=== PATIENT | female | born 1955 | race Caucasian/White ===

== ENCOUNTER 2019-06-10 13:30 | Outpatient (CLI) | payer OTHER, SELFPAY ==
--- NOTE | ~2019-06-10 | DEXA_ITS ---
Bone Density Report Name: Tabatha Douglass Age: 64 Sex: Female Ethnicity: White Date of : 1955 Indication: postmenopausal; height loss; Referring Provider: Ese, Cherelle Study: Bone densitometry was performed. Exam Date: June 10, 2019 Accession number: [id number] Bone Density: Region BMD T-score Z-score Classification AP Spine (L1, L2) 0.898 -0.7 0.9 Normal Femoral Neck (Left) 0.771 -0.7 0.8 Normal Total Hip (Left) 1.011 0.6 1.8 Normal Total Hip Bilateral Avg 0.994 0.5 1.7 Normal Femoral Neck (Right) 0.764 -0.8 0.8 Normal Total Hip (Right) 0.976 0.3 1.5 Normal World Health Organization criteria for BMD impression classify patients as: Normal (T-score at or above -1.0), Osteopenia (T-score between -1.0 and -2.5), or Osteoporosis (T-score at or below -2.5). 10-year Fracture Risk: FRAX not reported because: All T-scores for Spine Total, Hip Total, Femoral Neck at or above -1.0 Clinical Information Provided by Patient: Has used the following medications: Vitamin D Patient maximum height was 62 Menopause Age: 49 Drinks caffeinated beverages Onset of menses at age 11 Number of children 3 Impression: The patient has normal bone mass. Discussion: BONE DENSITY IS ABOVE THE MINIMUM DESIRABLE LEVEL AT ALL SKELETAL SITES TESTED. This patient?s bone mineral density is above the minimum desirable level (T-score -1.0 or better) at all sites measured. The patient should follow a healthful lifestyle (good nutrition with adequate calcium and vitamin D, and appropriate weight-bearing exercise). Follow-Up: Consider repeating this study in 5 years or sooner if there is some new clinical indication. Reported by: FIGUEROA on 06/10/2019 2:19:00 PM. Reviewed, dictated and finalized at location [facility]
--- NOTE | ~2019-06-10 | MM_ITS ---
EXAMINATION: MM screening [facility] BI w xi HISTORY: Screening mammogram TECHNIQUE: Craniocaudal and mediolateral oblique 3-D tomosynthesis images were obtained and synthetic 2-D images were generated. CAD analysis was submitted and interpreted. COMPARISON: No prior mammogram is available for comparison at this institution. BREAST PARENCHYMAL COMPOSITION: The breasts are almost entirely fatty.. FINDINGS: There is no evidence of suspicious mass, calcification, or architectural distortion to sugg est malignancy in either breast. There has been no suspicious interval change. IMPRESSION: 1. No mammographic evidence of malignancy. 2. Recommend routine screening mammography in one year. BI-RADS Category 1: Negative Reviewed, dictated and finalized at location A. [facility] [employer] [employer]
== END 2019-06-10 13:31 | disposition home or self-care (01) ==
PROVIDERS: PCP Internal Medicine Geriatric Medicine; Visit Provider Nurse Practitioner
DX: Z12.31 Encounter for screening mammogram for malignant neoplasm of breast (principal); Z78.0 Asymptomatic menopausal state
CPT/HCPCS: 77063; 77067; 77080

== ENCOUNTER 2020-01-14 07:47 | Outpatient (CLI) | payer OTHER, SELFPAY ==
--- NOTE | 2020-01-14 07:51 | ECG_ITS ---
Measurements Intervals [place] Rate: 64 P: 19 OR: 224 QRS: 4 QRSD: 102 T: 36 QT: 369 QTc: 381 Interpretive Statements SINUS RHYTHM WITH FIRST DEGREE AV BLOCK LOW QRS VOLTAGE IN PRECORDIAL LEADS POOR R WAVE PROGRESSION, ANTERIOR LEADS BORDERLINE T WAVE ABNORMALITY- ANTERIOR LEADS BASELINE ARTIFACT- I, II, III, AVR, AVF ABNORMAL ECG Electronically Signed On 01-14-2020 9:10:11 CDT by Humble Almaraz D.O.
[2020-01-14 08:42] LABS: Anion Gap 5 mmol/L (8-16); Blood Urea Nitrogen 21 mg/dL (7-17); Calcium 9.3 mg/dL (8.4-10.2); Carbon Dioxide 33 mmol/L (22-30); Chloride 100 mmol/L (98-107); Estimated Glomerular Filt Rate 50; Glucose 99 mg/dL (65-105); Potassium 3.9 mmol/L (3.4-5.0); Sodium 138 mmol/L (137-145)
== END 2020-01-14 07:48 | disposition home or self-care (01) ==
LOC: ANHSURGERY 07:51
PROVIDERS: Anesthesiology; PCP Family Medicine; Visit Provider Obstetrics & Gynecology Gynecology
DX: Z01.818 Encounter for other preprocedural examination (principal); I10 Essential (primary) hypertension; I44.0 Atrioventricular block, first degree
CPT/HCPCS: 36415; 80048; 93005

== ENCOUNTER 2020-01-22 02:06 | Outpatient (CLI) | payer OTHER, SELFPAY ==
[2020-01-22 18:25] LABS: SARS-CoV-2 RNA PCR Negative
== END 2020-01-22 02:07 | disposition home or self-care (01) ==
LOC: ANHCOVIDDT 02:06
PROVIDERS: Obstetrics & Gynecology Gynecology; PCP Family Medicine
DX: Z01.812 Encounter for preprocedural laboratory examination (principal); Z20.828 Contact with and (suspected) exposure to other viral communicable diseases
CPT/HCPCS: 87635; C9803; U0003

== ENCOUNTER 2020-01-25 01:45 | Day surgery (SDC) | payer OTHER, SELFPAY ==
[2020-01-12 18:47] VITALS: BMI 51.2
--- NOTE | 2020-01-25 07:37 | PM.HPGS ---
History of Present Illness History of Present Illness Consent: Risks, benefits, and alternatives have been discussed and questions answered. Patient agrees to proceed with procedure. Chief complaint: Prolapsed Fibroid/ Postmenopausal Bleeding Narrative: Tabatha Douglass is a 64 year old female with postmenopausal bleeding. On exam, prolapsed fibroid approx 3x 6 cm. Recommended removal in OR due to bleeding risks. Patient agreed. Discussed procedure and need to evaluate endometrial cavity as well. Risks of infection, bleeding, perforation, and possible pathology reviewed. Agrees to proceed. [facility] Past Medical History Medical History (Updated 01/25/20 @ 07:42 by Tamie Parekh MD) delivery delivered x 3 Elevated cholesterol HTN (hypertension) Surgical History Surgical History (Updated 01/25/20 @ 07:40 by Tamie Parekh MD) S/P cholecystectomy Social History Social History Smoking status: Never smoker Alcohol use details: drinks on special occasions Substance use: never Living arrangements: with family Spiritual care concerns: No Meds Home Medications and Allergies Home Medications Medication Instructions Recorded Confirmed Type atorvastatin 10 mg PO DAILY 09/09/19 01/12/20 History lisinopril-hydrochlorothiazide 10 - 12.5 tablet PO DAILY 09/09/19 01/12/20 History cetirizine [Zyrtec] 10 mg PO DAILY 01/12/20 01/12/20 History Allergies Allergy/AdvReac Type Severity Reaction Status Date / Time No Known Allergies Allergy Unverified 08/25/16 11:59 Exam Const: General: healthy appearing and alert Orientation/consciousness: patient oriented x3 Resp: Effort & Inspection: normal respiratory effort Auscultation: clear to auscultation bilaterally Cardio: Rate: regular rate Rhythm: regular rhythm GI: GI Palp: Yes Soft to palpation, No Tenderness to palpation present (GI) and No Palpable mass present : External Female Exam: normal external appearance Speculum Exam - Vagina: normal appearance of the vagina and normal vaginal discharge Speculum Exam - Cervix: Cervical mass present (6x3 cm probable prolapsed fibroid) pedunculated Bimanual exam- vagina & uterus: uterine size normal and consistency normal Bimanual Exam- Adnexa, other: normal adnexae and No adnexal tenderness Neuro: General: patient oriented x3 Assessment and Plan Assessment and plan (1) Post-menopausal bleeding: Code(s): N95.0 - Postmenopausal bleeding Status: Acute Assessment and Plan: probable prolapsed fibroid plan removal of mass and hysteroscopy with D&C
--- NOTE | 2020-01-25 08:06 | P.PNAN_ITS ---
Anes - Initial Pre Proc Eval Procedure: Operation Date: 01/25/20 10:00 Proposed Procedures p Hysteroscopy, Dilation And Curettage, Removal Prolapsed Fibroid - Tamie Parekh MD Date/Time: 01/25/20 08:06 Surgeon: Tamie Parekh MD Pre Op Diagnosis: Prolapsed Fibroid/ Postmenopausal Bleeding Patient Data Age: 64 Gender: F Height: 1.56 m Weight: 125 kg Allergies Allergy/AdvReac Type Severity Reaction Status Date / Time No Known Allergies Allergy Unverified 08/25/16 11:59 Home Medications Medication Instructions Recorded Confirmed Type atorvastatin 10 mg PO DAILY 09/09/19 01/12/20 History lisinopril-hydrochlorothiazide 10 - 12.5 tablet PO DAILY 09/09/19 01/12/20 History cetirizine [Zyrtec] 10 mg PO DAILY 01/12/20 01/12/20 History Patient hx anesthesia problems: none Family hx anesthesia problems: none [facility] Past Medical History Medical History (Updated 01/25/20 @ 08:07 by Jayy Nation MD) delivery delivered x 3 Elevated cholesterol HTN (hypertension) Morbidly obese Surgical History Surgical History (Updated 01/25/20 @ 07:40 by Tamie Parekh MD) S/P cholecystectomy Social History Social History Smoking status: Never smoker Alcohol use details: drinks on special occasions Substance use: never Living arrangements: with family Spiritual care concerns: No Anes - Eval Final PreProcedure Day of Procedure 01/25/20 08:06 Patient weight: morbidly obese Heart: regular rate and rhythm Lungs: clear to auscultation and normal air movement Airway: Mallampati scale class II Neurological: alert and oriented Last oral intake: >/= 8 hours ASA classification: III Emergent: no Anesthetic plan: proceed Anesthesia type and monitoring: general GIVS and LMA Informed Consent: The patient's anesthetic plan and its attendant risks and benefits were discussed with the patient/family/POA. Questions were solicited and answers provided to the satisfaction of the patient/family/POA.
--- NOTE | 2020-01-25 08:13 | WPDHPUPDATE1 ---
History and Physical Update Update Date/Time: 01/25/20 08:13 History and Physical has been reviewed, including an updated exam of the patient. There are NO changes in the patient's condition. Risks, benefits, and alternatives have been discussed and questions answered. Patient agrees to proceed with procedure.
[2020-01-25] MEDS: ACETAMINOPHEN 500 MG TABLET 1000 MG PO (08:23)
[2020-01-25] MEDS: LACTATED RINGERS 1,000 ML 30 ML IV CONT (08:24)
[2020-01-25 08:44] VITALS: BP 151/81; PULSE 65; RESP 18; TEMP 36.7; O2SAT 95
--- NOTE | 2020-01-25 10:12 | SUR.OPER ---
550ml in, 450ml out. aware
--- NOTE | 2020-01-25 10:14 | PM.PROC ---
Procedure Note - Detailed Date of procedure: 01/25/20 Pre-op diagnosis: Prolapsed Fibroid/ Postmenopausal Bleeding Post-op diagnosis: same Procedure performed: removal prolapsed fibroid; D&C hysteroscopy Description of procedure: The patient is taken to the operating room and placed under anesthesia in the dorsal lithotomy position. The bivalve speculum is placed in the vagina and the cervix grasped on the anterior lip with the tenaculum. The cervical mass is grasped with a ring forceps and removed intact. The uterus is sounded to 7cm. The cervix is serially dilated with hegars and the diagnostic hysteroscope was placed. The stated findings are noted. The hysteroscope was removed. The sharp curette is used to sharply curette the endometrium until a good uterine cry was noted in all areas. Moderate amount of material was obtained. Particular attention is paid to the posterior wall. All instruments were then removed and the patient is awakened from anesthesia. She was taken to the recovery room in stable condition. Sponge instrument and needle counts are correct per the OR staff. Anesthesia: MAC and local Surgeon: Tamie Parekh MD Estimated blood loss (mL): 5 Drains: No Packing: No Pathology: yes (fibroid and endometrial curettings) Complications: No immediate complications Condition: stable Disposition: PACU Findings: prolapsed cervical mass c/w probable fibroid 6x3 cm; posterior lower uterine wall appears to be insertion site for mass; remainder of endometrium appears grossly atrophic
[2020-01-25 10:20] VITALS: BP 99/51; PULSE 68; RESP 16; O2SAT 94
--- NOTE | 2020-01-25 10:43 | SUR.PHASEII ---
PT AWAKE AND ALERT NOW. DENIES PAIN OR CRAMPING. READY TO SIT IN RECLINER.
[2020-01-25 10:50] VITALS: BP 92/52; PULSE 56; RESP 14; O2SAT 97
[2020-01-25 11:20] VITALS: BP 101/64; PULSE 58; RESP 16
--- NOTE | 2020-01-25 11:44 | SUR.PHASEII ---
PT DRESSED AND READY TO GO HOME. MEETS DISCHARGE CRITERIA. AWAKE AND ALERT.
== END 2020-01-25 11:53 | disposition home or self-care (01) ==
PROVIDERS: PCP Family Medicine; Visit Provider Obstetrics & Gynecology Gynecology
PROC: 0U5B8ZZ Destruction of Endometrium, Via Natural or Artificial Opening Endoscopic (ICD-10-PCS; CPT 58563; principal; 2020-01-25 10:00)
DX: N95.0 Postmenopausal bleeding (principal); N84.0 Polyp of corpus uteri; I10 Essential (primary) hypertension; E78.00 Pure hypercholesterolemia, unspecified; E66.01 Morbid (severe) obesity due to excess calories; Z68.43 Body mass index [BMI] 50.0-59.9, adult
CPT/HCPCS: 58558; 88305; A9270; J2250; J2704; J3010; J7030; J7120

== ENCOUNTER 2020-03-31 11:45 | Outpatient (CLI) | payer MEDICARE, OTHER, SELFPAY ==
[2020-03-31 12:18] LABS: Influenza Control Valid (Valid); SARS-CoV-2 Ag Negative (Negative)
[2020-04-02 19:30] LABS: SARS-CoV-2 RNA PCR Negative
== END 2020-03-31 11:46 | disposition home or self-care (01) ==
PROVIDERS: PCP Family Medicine; Visit Provider Family Medicine
DX: J00 Acute nasopharyngitis [common cold] (principal)
CPT/HCPCS: 87426; 87635; 87804; C9803; U0003

== ENCOUNTER → 2020-10-06 12:39 | Outpatient (CLI) | payer MEDICARE, SELFPAY ==
--- NOTE | ~2020-10-06 | MM_ITS ---
EXAMINATION: MM screening [facility] BI w xi HISTORY: Screening TECHNIQUE: Craniocaudal and mediolateral oblique 3-D tomosynthesis images were obtained and synthetic 2-D images were generated. CAD analysis was submitted and interpreted. COMPARISON: Breast composed of scattered areas of fibroglandular density. BREAST PARENCHYMAL COMPOSITION: There are scattered areas of fibroglandular density. FINDINGS: There is no evidence of suspicious mass, calcification, or architectural distortion to sugg est malignancy in either breast. There has been no suspicious interval change. IMPRESSION: 1. No mammographic evidence of malignancy. 2. Recommend routine screening mammography in one year. BI-RADS Category 1: Negative Reviewed, dictated and finalized at location A.
== END ==
PROVIDERS: Visit Provider Nurse Practitioner
DX: Z12.31 Encounter for screening mammogram for malignant neoplasm of breast (principal)
CPT/HCPCS: 77063; 77067

== ENCOUNTER → 2022-01-26 10:06 | Outpatient (CLI) | payer MEDICARE, SELFPAY ==
--- NOTE | ~2022-01-26 | MM_ITS ---
EXAMINATION: MM screening [facility] BI w xi HISTORY: Screening TECHNIQUE: Craniocaudal and mediolateral oblique 3-D tomosynthesis images were obtained and synthetic 2-D images were generated. CAD analysis was submitted and interpreted. COMPARISON: Comparison to multiple prior studies sequentially, with oldest reviewed study dated 07/2019. BREAST PARENCHYMAL COMPOSITION: There are scattered areas of fibroglandular density. FINDINGS: There is no evidence of suspicious mass, calcification, or architectural distortion to sugg est malignancy in either breast. There has been no suspicious interval change. IMPRESSION: 1. No mammographic evidence of malignancy. 2. Recommend routine screening mammography in one year. BI-RADS Category 1: Negative Reviewed, dictated and finalized at location A.
== END ==
PROVIDERS: PCP Family Medicine; Visit Provider Nurse Practitioner
DX: Z12.31 Encounter for screening mammogram for malignant neoplasm of breast (principal)
CPT/HCPCS: 77063; 77067

== ENCOUNTER 2023-07-31 13:46 | Outpatient (CLI) | payer MEDICARE, SELFPAY ==
--- NOTE | ~2023-07-31 | MM_ITS ---
EXAMINATION: MM screening [facility] BI w xi HISTORY: Screening mammogram TECHNIQUE: Craniocaudal and mediolateral oblique 3-D tomosynthesis images were obtained and synthetic 2-D images were generated. CAD analysis was submitted and interpreted. COMPARISON: 01/26/2022, 10/06/2020 bilateral screening mammogram examinations BREAST PARENCHYMAL COMPOSITION: There are scattered areas of fibroglandular density. FINDINGS: There is no evidence of suspicious mass, calcification, or architectural distortion to sugg est malignancy in either breast. There has been no suspicious interval change. IMPRESSION: 1. No mammographic evidence of malignancy. 2. Recommend routine screening mammography in one year. BI-RADS Category 1: Negative Reviewed, dictated and finalized at location A.
== END 2023-07-31 13:47 ==
LOC: MICIMG 13:47
PROVIDERS: PCP Nurse Practitioner; Visit Provider Nurse Practitioner
DX: Z12.31 Encounter for screening mammogram for malignant neoplasm of breast (principal)
CPT/HCPCS: 77063; 77067

== ENCOUNTER 2023-11-18 08:44 | Outpatient (CLI) | payer MEDICARE, SELFPAY ==
--- NOTE | ~2023-11-18 | DEXA_ITS ---
Bone Density Report Name: ADI NOWAK Age: 68 Sex: Female Ethnicity: White Date of : 1955 Indication: postmenopausal; screening for osteoporosis; parental hip fracture; Referring Provider: LINDA PEÑA Study: Bone densitometry was performed. Exam Date: November 18, 2023 Accession number: [id number] Bone Density: Region BMD T-score Z-score Classification AP Spine(L1-L4) 1.006 -0.4 1.7 Normal Femoral Neck (Left) 0.805 -0.4 1.4 Normal Total Hip (Left) 0.958 0.1 1.6 Normal Femoral Neck (Right) 0.735 -1.0 0.8 Normal Total Hip (Right) 0.910 -0.3 1.2 Normal Total Hip Mean 0.934 -0.1 1.4 Normal World Health Organization criteria for BMD impression classify patients as: Normal (T-score at or above -1.0), Osteopenia (T-score between -1.0 and -2.5), or Osteoporosis (T-score at or below -2.5). 10-year Fracture Risk: FRAX not reported because: All T-scores for Spine Total, Hip Total, Femoral Neck at or above -1.0 Previous Exams: Region Exam Age BMD T-score BMD Change BMD Change Date g/cm2 vs Baseline vs Previous Total Hip(Left) 11/18/2023 68 0.958 0.1 -0.053 (-5.2%) -0.053 (-5.2%) 06/10/2019 64 1.011 0.6 Total Hip(Right) 11/18/2023 68 0.910 -0.3 -0.066 (-6.8%) -0.066 (-6.8%) 06/10/2019 64 0.976 0.3 *Denotes significance at 95% confidence level, LSC for Total Hip = 0.027 g/cm2 # Denotes dissimilar scan types or analysis methods Clinical Information Provided by Patient: Parent has had a hip fracture Has used the following medications: Vitamin D, Calcium Patient maximum height was 62.5 Menopause Age: 49 No regular weight bearing exercise Drinks caffeinated beverages Onset of menses at age 11 Number of children 3 Impression: The patient has normal bone mass. The patient has risk factors, including: parental hip fracture. No significant bone loss was observed. Discussion: BONE DENSITY IS ABOVE THE MINIMUM DESIRABLE LEVEL AT ALL SKELETAL SITES TESTED. This patient?s bone mineral density is above the minimum desirable level (T-score -1.0 or better) at all sites measured. The patient should follow a healthful lifestyle (good nutrition with adequate calcium and vitamin D, and appropriate weight-bearing exercise). Follow-Up: Consider repeating this study in 5 years or sooner if there is some new clinical indication. Reported by: FELICIA on 11/18/2023 9:19:00 AM. Reviewed, dictated and finalized at l
== END 2023-11-18 08:45 | disposition home or self-care (01) ==
PROVIDERS: PCP Nurse Practitioner; Visit Provider Obstetrics & Gynecology Gynecology
DX: Z78.0 Asymptomatic menopausal state (principal)
CPT/HCPCS: 77080